=== PATIENT | female | born 1990 | race Two or more races ===

== ENCOUNTER 2017-07-22 19:38 | Emergency (ER) | payer OTHER ==
[~2017-07-22] VITALS: Ht 154.9 cm; Wt 54.4 kg
[2017-07-22 19:38] VITALS: BP 134/92
[2017-07-22] MEDS ORDERED: KETOROLAC TROMETHAMINE INJ 30 MG/ML VIAL ONE (20:51)
[2017-07-22] MEDS ORDERED: KETOROLAC TROMETHAMINE INJ 60 MG/2 ML VIAL IM ONE (21:00)
== END 2017-07-22 21:04 | disposition home or self-care (01) ==
LOC: ER 19:40
DX: R51 Headache (principal); F41.9 Anxiety disorder, unspecified; Z88.1 Allergy status to other antibiotic agents
CPT/HCPCS: 96372; 99283; A4606; J1885; Z7610